=== PATIENT | male | born 1940 | race Caucasian/White ===

== ENCOUNTER 2018-10-17 14:59 | Inpatient (IN) ==
[2018-10-17] MEDS ORDERED: FUROSEMIDE 100 MG/10 ML VIAL IV STA (15:22)
[2018-10-17] MEDS ORDERED: ALBUTEROL NEB SOLN 5 MG/ML 20 ML/BOTTLE RESP TX SCH (15:30)
[2018-10-17 15:43] LABS: Basophils % 0.4 % (0.0-0.8); Eosinophils # 0.1 10*3/uL (0.0-0.87); Eosinophils % 0.8 % (0.00-10.9); Hematocrit 40.9 VOL% (42.0-52.0); Hemoglobin 12.4 GM/DL (14.0-18.0); Immature Granulocytes Absolute 0.09 #; Lymphocytes # 0.6 10*3/uL (1.4-4.0); Lymphocytes % 6.7 % (21.2-54.2); Mean Corpuscular HGB Conc 30.3 GM/DL (32-36); Mean Corpuscular Volume 97.8 FL (87-102); Mean Platelet Volume 10.2 FL (9.6-12.0); Neutrophils % 80.1 % (38.7-73.9); Platelet Count 236 T/CUMM (130-400); Red Blood Count 4.18 MC/CUMM (3.8-5.5); Red Cell Distribution Width 13.9 % (9.3-17.3); White Blood Count 9.2 T/CUMM (4-12)
[2018-10-17 15:52] LABS: PT Patient Result 10.6 SECS; Partial Thromboplastin Time 25.1 SECS (0-40)
[2018-10-17 16:01] LABS: ABG Base Excess 4.7 MMOL/L (-2.5-2.5); ABG HCO3 28.3 MMOL/L (20-26); ABG Oxygen Saturation 86.9 % (95-100); ABG PCO2 56.4 MM HG (35-48); ABG PO2 57.8 MM HG (80-95); Allen Test Positive
[2018-10-17 16:12] LABS: Albumin 3.8 G/DL (3.4-5.0); Bilirubin,Total 0.6 MG/DL (0.2-1.0); Calcium 8.7 MG/DL (8.5-10.1); Osmolality,Calculated 285.5 MOS/KG (273-304); Total Protein 7.7 G/DL (6.4-8.3)
[2018-10-17] MEDS ORDERED: CEFTAROLINE 600 MG in SODIUM CHLORIDE 0.9% 100 ML IV STA (16:19)
[2018-10-17] MEDS ORDERED: guaiFENesin/DM ER 600-30 MG TABLET PO PRN (18:32)
[2018-10-17] MEDS ORDERED: ONDANSETRON 4 MG/2 ML VIAL IV PRN (18:32)
[2018-10-17 19:39] LABS: Apearance,Urine CLEAR (Clear); Bacteria,Urine Occasional /HPF (Few); Bilirubin,Urine Negative (Negative); Blood, Urine Negative (Negative); Glucose,Urine (UA) Negative (Negative); Hyaline Casts,Urine 7 /LPF (0-3); Ketones,Urine Negative (Negative); Mucus,Urine Occasional /LPF (Occasional); Nitrite,Urine Negative (Negative); Protein,Urine 30 MG/DL; RBC,Urine 2 /HPF (0-4); Urine Color Yellow (Yellow); Urine Specific Gravity 1.016 (1.001-1.035); Urine Urobilinogen < 2.0 EU/DL (0.2-1.0); WBC,Urine <1 /HPF (0-6)
[2018-10-18] MEDS ORDERED: ALBUTEROL 0.63 MG/3 ML NEB RESP TX PRN (00:39)
[2018-10-18] MEDS: ALBUTEROL/IPRATROPIUM 3 ML NEB RESP TX SCH ×4 (01:00→19:52)
[2018-10-18 03:16] LABS: Basophils % 0.2 % (0.0-0.8); Eosinophils # 0.1 10*3/uL (0.0-0.87); Eosinophils % 0.8 % (0.00-10.9); Hematocrit 36.3 VOL% (42.0-52.0); Hemoglobin 11.5 GM/DL (14.0-18.0); Immature Granulocytes % 0.9 %; Immature Granulocytes Absolute 0.08 #; Lymphocytes # 0.6 10*3/uL (1.4-4.0); Lymphocytes % 6.2 % (21.2-54.2); Mean Corpuscular HGB Conc 31.7 GM/DL (32-36); Mean Corpuscular Volume 95.5 FL (87-102); Mean Platelet Volume 11.7 FL (9.6-12.0); Monocytes % 12.2 % (1.7-12.7); NRBC # 0.03 10*3/uL; Neutrophils % 79.7 % (38.7-73.9); Platelet Count 161 T/CUMM (130-400); Red Cell Distribution Width 14.2 % (9.3-17.3)
[2018-10-18 03:43] LABS: Calcium 8.3 MG/DL (8.5-10.1); Risk Ratio 2.46; Thyroid Stimulating Hormone 3.05 uIU/ml (0.358-3.74); VLDL CHOLESTEROL 19.6 MG/DL
[2018-10-18] MEDS ORDERED: CEFTAROLINE 600 MG in SODIUM CHLORIDE 0.9% 100 ML IV SCH (05:00)
[2018-10-18] MEDS: FUROSEMIDE 40 MG/4 ML VIAL IV SCH ×2 (08:49→16:54)
[2018-10-18] MEDS: ASPIRIN EC 81 MG TABLET PO SCH (08:50)
[2018-10-18] MEDS: amLODIPine 5 MG TABLET PO SCH (08:50)
[2018-10-18] MEDS: TAMSULOSIN 0.4 MG CAPSULE PO SCH (08:51)
[2018-10-18] MEDS: NEBIVOLOL 5 MG TABLET PO SCH (08:51)
[2018-10-18] MEDS: PANTOPRAZOLE 40 MG TABLET PO SCH (08:51)
[2018-10-18] MEDS: LOSARTAN 50 MG TABLET PO SCH (08:51)
[2018-10-18] MEDS ORDERED: AMIODARONE 200 MG TABLET PO SCH (09:00)
[2018-10-18] MEDS ORDERED: DOXYCYCLINE HYCLATE INJ 100 MG in SODIUM CHLORIDE 0.9% 100 ML IV SCH (09:00)
[2018-10-18] MEDS ORDERED: hydroCHLOROthiazide 25 MG TABLET PO SCH (09:00)
[2018-10-18] MEDS: methylPREDNISolone SOD SUC 40 MG/1 ML VIAL IV SCH ×2 (09:38→21:30)
[2018-10-18] MEDS: ASCORBIC ACID 500 MG TABLET PO SCH ×2 (14:12→21:30)
[2018-10-18] MEDS: APIXABAN 5 MG TABLET PO SCH ×2 (14:12→21:30)
[2018-10-18] MEDS: SIMVASTATIN 20 MG TABLET PO SCH (21:30)
[2018-10-18] MEDS: FLUTICASONE 220 MCG/PUFF INHALER 12 GM INH SCH (21:37)
[2018-10-19] MEDS: ALBUTEROL/IPRATROPIUM 3 ML NEB RESP TX SCH ×4 (01:36→20:31)
[2018-10-19 05:02] LABS: Basophils % 0.1 % (0.0-0.8); Hematocrit 38.2 VOL% (42.0-52.0); Hemoglobin 11.6 GM/DL (14.0-18.0); Immature Granulocytes Absolute 0.08 #; Lymphocytes # 0.2 10*3/uL (1.4-4.0); Lymphocytes % 2.9 % (21.2-54.2); Mean Corpuscular HGB Conc 30.4 GM/DL (32-36); Mean Platelet Volume 10.6 FL (9.6-12.0); Monocytes % 1.9 % (1.7-12.7); Neutrophils % 94.1 % (38.7-73.9); Platelet Count 217 T/CUMM (130-400); Red Blood Count 3.94 MC/CUMM (3.8-5.5); Red Cell Distribution Width 13.8 % (9.3-17.3); White Blood Count 8.2 T/CUMM (4-12)
[2018-10-19 05:24] LABS: Calcium 8.6 MG/DL (8.5-10.1); Osmolality,Calculated 296.1 MOS/KG (273-304)
[2018-10-19 05:40] LABS: Band Neutrophils 1 % (0-10); Lymphocytes 3 % (20-55); Segmented Neutrophils 93 % (50-85)
[2018-10-19 05:41] LABS: Hypochromasia 1+; Platelet Estimate Normal
[2018-10-19 05:42] LABS: Total Cells Counted 100
[2018-10-19] MEDS: methylPREDNISolone SOD SUC 40 MG/1 ML VIAL IV SCH ×2 (08:58→21:55)
[2018-10-19] MEDS: FUROSEMIDE 40 MG/4 ML VIAL IV SCH (08:58)
[2018-10-19] MEDS: ASCORBIC ACID 500 MG TABLET PO SCH ×2 (09:00→21:55)
[2018-10-19] MEDS: LOSARTAN 50 MG TABLET PO SCH (09:01)
[2018-10-19] MEDS: NEBIVOLOL 5 MG TABLET PO SCH (09:01)
[2018-10-19] MEDS: APIXABAN 5 MG TABLET PO SCH ×2 (09:02→21:55)
[2018-10-19] MEDS: amLODIPine 5 MG TABLET PO SCH (09:02)
[2018-10-19] MEDS: TAMSULOSIN 0.4 MG CAPSULE PO SCH (09:02)
[2018-10-19] MEDS: FLUTICASONE 220 MCG/PUFF INHALER 12 GM INH SCH ×2 (09:02→21:54)
[2018-10-19] MEDS: PANTOPRAZOLE 40 MG TABLET PO SCH (09:02)
[2018-10-19] MEDS: ASPIRIN EC 81 MG TABLET PO SCH (09:02)
[2018-10-20] MEDS: ALBUTEROL/IPRATROPIUM 3 ML NEB RESP TX SCH ×4 (00:49→19:35)
[2018-10-20 03:52] LABS: Basophils % 0.1 % (0.0-0.8); Hematocrit 36.8 VOL% (42.0-52.0); Hemoglobin 11.3 GM/DL (14.0-18.0); Immature Granulocytes % 0.9 %; Immature Granulocytes Absolute 0.14 #; Lymphocytes # 0.3 10*3/uL (1.4-4.0); Lymphocytes % 2.1 % (21.2-54.2); Mean Corpuscular HGB Conc 30.7 GM/DL (32-36); Mean Corpuscular Volume 95.3 FL (87-102); Mean Platelet Volume 10.3 FL (9.6-12.0); Monocytes % 2.6 % (1.7-12.7); Neutrophils % 94.3 % (38.7-73.9); Platelet Count 238 T/CUMM (130-400); Red Blood Count 3.86 MC/CUMM (3.8-5.5); White Blood Count 15.1 T/CUMM (4-12)
[2018-10-20 04:13] LABS: Calcium 8.5 MG/DL (8.5-10.1); Osmolality,Calculated 298.4 MOS/KG (273-304)
[2018-10-20 04:32] LABS: Band Neutrophils 2 % (0-10); Lymphocytes 1 % (20-55); Segmented Neutrophils 92 % (50-85); Total Cells Counted 100
[2018-10-20 04:33] LABS: Anisocytosis 1+; Platelet Estimate Adequate
[2018-10-20] MEDS: LOSARTAN 50 MG TABLET PO SCH (09:29)
[2018-10-20] MEDS: FUROSEMIDE 40 MG TABLET PO SCH (09:29)
[2018-10-20] MEDS: predniSONE 20 MG TABLET PO SCH (09:29)
[2018-10-20] MEDS: NEBIVOLOL 5 MG TABLET PO SCH (09:29)
[2018-10-20] MEDS: TAMSULOSIN 0.4 MG CAPSULE PO SCH (09:29)
[2018-10-20] MEDS: PANTOPRAZOLE 40 MG TABLET PO SCH (09:29)
[2018-10-20] MEDS: amLODIPine 5 MG TABLET PO SCH (09:29)
[2018-10-20] MEDS: APIXABAN 5 MG TABLET PO SCH ×2 (09:29→21:17)
[2018-10-20] MEDS: ASCORBIC ACID 500 MG TABLET PO SCH ×2 (09:29→21:19)
[2018-10-20] MEDS: ASPIRIN EC 81 MG TABLET PO SCH (09:30)
[2018-10-20] MEDS: FLUTICASONE 220 MCG/PUFF INHALER 12 GM INH SCH ×2 (09:30→21:19)
[2018-10-20] MEDS: BUDESONIDE 0.5 MG/2 ML NEB RESP TX SCH (19:35)
[2018-10-20] MEDS: SIMVASTATIN 20 MG TABLET PO SCH (21:19)
[2018-10-21] MEDS: ALBUTEROL/IPRATROPIUM 3 ML NEB RESP TX SCH ×3 (00:05→13:45)
[2018-10-21] MEDS: BUDESONIDE 0.5 MG/2 ML NEB RESP TX SCH (07:44)
[2018-10-21] MEDS: PANTOPRAZOLE 40 MG TABLET PO SCH (09:33)
[2018-10-21] MEDS: TAMSULOSIN 0.4 MG CAPSULE PO SCH (09:33)
[2018-10-21] MEDS: ASCORBIC ACID 500 MG TABLET PO SCH (09:34)
[2018-10-21] MEDS: predniSONE 20 MG TABLET PO SCH (09:36)
[2018-10-21] MEDS: ASPIRIN EC 81 MG TABLET PO SCH (09:37)
[2018-10-21] MEDS: LOSARTAN 50 MG TABLET PO SCH (09:38)
[2018-10-21] MEDS: NEBIVOLOL 5 MG TABLET PO SCH (09:38)
[2018-10-21] MEDS: amLODIPine 5 MG TABLET PO SCH (09:38)
[2018-10-21] MEDS: FUROSEMIDE 40 MG TABLET PO SCH (09:38)
[2018-10-21] MEDS: FLUTICASONE 220 MCG/PUFF INHALER 12 GM INH SCH (09:39)
[2018-10-21] MEDS: APIXABAN 5 MG TABLET PO SCH (09:39)
[2018-10-21 13:25] VITALS: BP 134/82
== END 2018-10-21 15:20 | disposition home health service (06) | DRG 291 ==
LOC: N.ED 14:59 → N.EDINP 18:32 → N.TELEN 20:25
PROVIDERS: ADMIT Internal Medicine; ATTEND Internal Medicine